=== PATIENT | female | born 1980 | race Caucasian/White ===

== ENCOUNTER 2025-03-14 08:34 | Emergency (ER) | payer OTHER ==
[~2025-03-14] VITALS: Ht 160 cm; Wt 92.2 kg
[2025-03-14 08:45] VITALS: PULSE 89; RESP 16; TEMP 99; O2SAT 96
[2025-03-14] MEDS ORDERED: BENZONATATE100 MG PO (08:56)
[2025-03-14] MEDS: IBUPROFEN 600 MG TAB PO STA (09:03)
[2025-03-14] MEDS: IBUPROFEN 400 MG TAB PO STA (09:03)
== END 2025-03-14 09:17 | disposition home or self-care (01) ==
LOC: FSED 08:48
DX: R05.9 Cough, unspecified (principal); J06.9 Acute upper respiratory infection, unspecified; Z11.52 Encounter for screening for COVID-19
CPT/HCPCS: 0223U; 87400; 99284